=== PATIENT | male | born 1945 | race Caucasian/White ===

== ENCOUNTER 2018-08-30 13:38 | Inpatient (IN) | payer MEDICARE, MEDICAID ==
--- NOTE | 2018-08-30 14:02 | ED Physician Chart ---
ED Chief Complaint/HPI - Patient Information Date Seen:: 08/30/18 Time Seen:: 13:35 Chief Complaint:: Pt is here for medical clearance for Geropsych admission. History of Present Illness:: Pt has h/o dementia. Pt was brought in from nursing facility reportedly has been noticed to have been causing disturbance in nursing facility. Pt appears to be comfortable. Pt is hard of hearing and does not cooperate fully; thus, H & P are limited. Allergies:: Allergies Allergy/AdvReac Type Severity Reaction Status Date / Time No Known Allergies Allergy Verified 08/30/18 13:49 Vitals:: see Nurse Note. Historian:: Patient Family MD/PCP:: unknown LMP:: N/A Review:: Nurse's Note Reviewed ED Review of Systems - Review of Systems General/Constitutional: Other (Pt is uncooperative for ROS.) ED Past Medical History - Past Medical History Past Medical History: HTN, DM, Dyslipidemia, Dementia Family History: Other (Pt is uncooperative to provide info on FHx.) Social History: Other (Pt does not cooperate to provide info on SHx.) Surgical History: other (Pt does not cooperate to provide info on Surgical Hx.) Psychiatricy History: Dementia Medication: Reviewed Family Medical History - Family Member Mother History Unknown: Yes ED Physical Exam - Physical Examination General/Constitutional: Awake, Well-developed, well-nourished (male), Alert, No distress Other Gen/Cons comments:: Pt breathes comfortably and speaks clearly. Pt is not fully cooperative. Head: Atraumatic Eyes: Lids, conjuctiva normal, PERRL, EOMI Skin: Well hydrated, No lymphadenopathy ENMT: External ears, nose nl, Nasal exam nl, Oropharynx nl Neck: Nontender, Full ROM w/o pain, No mass Respiratory: Nl effort/Exclusion, Clear to Auscultation, No Wheeze/Rhonchi/Rales Cardio Vascular: RRR, No murmur, gallop, rubs GI: No tenderness/rebounding/guarding, No organomegaly, Normal BS's, Nondistended, No mass/bruits Other GI comments:: Abdomen is soft. Extremities: No tenderness or effusion, Full ROM, normal strength in all extremities, No edema Neuro/Psych: Alert/oriented (knows his name. Spontaneous movements noticed in all 4 extremities. Pt does not cooperate for full neurological exam.) Misc: Normal back, No paraspinal tenderness ED Labs/Radiology/EKG Results - Lab Results Results: Laboratory Results - last 24 hr 08/30/18 08/30/18 08/30/18 14:40 14:40 14:40 WBC 8.0 RBC 4.20 Hgb 12.6 Hct 37.7 L MCV 89.7 MCH 30.0 MCHC Differential 33.5 RDW 13.3 Plt Count 234 MPV 10.0 Neutrophils % 63.3 Lymphocytes % 19.5 L Monocytes % 11.9 H Eosinophils % 4.8 Basophils % 0.5 PT 9.9 INR 0.95 PTT (Actin FS) 27.1 Sodium 140 Potassium 3.8 Chloride 102 Carbon Dioxide 29.4 Anion Gap 12.4 BUN 19 Creatinine 0.8 Est GFR ( Amer) TNP Est GFR (Non-Af Amer) TNP BUN/Creatinine Ratio 23.8 Glucose 172 H Calcium 9.9 Total Bilirubin 0.3 AST 74 H ALT 80 H Alkaline Phosphatase 106 H Troponin I Total Protein 7.3 Albumin 3.9 L Globulin 3.4 Albumin/Globulin Ratio 1.2 08/30/18 14:40 WBC RBC Hgb Hct MCV MCH MCHC Differential RDW Plt Count MPV Neutrophils % Lymphocytes % Monocytes % Eosinophils % Basophils % PT INR PTT (Actin FS) Sodium Potassium Chloride Carbon Dioxide Anion Gap BUN Creatinine Est GFR ( Amer) Est GFR (Non-Af Amer) BUN/Creatinine Ratio Glucose Calcium Total Bilirubin AST ALT Alkaline Phosphatase Troponin I 0.02 Total Protein Albumin Globulin Albumin/Globulin Ratio Pending lab results to be followed by admitting attending physician: urinalysis. - EKG Interpretations EKG Time:: 14:35 Rate & Rhythm: NSR with VR 78 Comments:: RBBB NSSTT changes. ED Septic Shock - . Is Septic Shock (SBP<90, OR Lactate>4 mmol\L) present?: No ED Reassessment (Disposition) - Reassessment Reassessment:: 1528 Pt remains stable and comfortable. Available lab results have been reviewed. Pt is medically cleared to be admitted to Geropsych Unit. Reassessment Condition:: Improved - Diagnosis Diagnosis:: Dementia with agitation by hx. Diabetes mellitus. Dyslipidemia. HTN. Asymptomatic mildly elevated AST/ALT and alkaline phosphatase of unknown significance. - Patient Disposition Admitted to:: [facility] Admitting Medical Physician:: Percy Benitez Admitting Psych Physician:: Bruce Cohn Time:: 15:40 Condition at Disposition:: Stable
[2018-08-30 14:47] LABS: EOSINOPHILE ABSOLUTE 0.4 Th/cmm (0.1-0.4); HEMOGLOBIN 12.6 gm/dL (12-16)
[2018-08-30 14:52] LABS: % BASOPHILS 0.5 % (0.0-2.0); % EOSINOPHILS 4.8 % (0.0-5.0); % LYMPHOCYTES 19.5 % (20.0-50.0); % MONOCYTES 11.9 % (2.0-10.0); % NEUTROPHILS 63.3 % (40.0-80.0); HEMATOCRIT 37.7 % (41.0-60); LYMPHOCYTE ABSOLUTE 1.6 Th/cmm (1.5-3.0); MEAN CELL VOLUME 89.7 fl (80-99); MEAN CORPUSCULAR HGB CONC 33.5 pg (28.0-36.0); PLATELET COUNT 234 Th/cmm (150-400); RED CELL DISTRIBUTION WIDTH 13.3 % (11.5-20.0)
[2018-08-30 15:00] LABS: INR 0.95 (0.5-1.4)
[2018-08-30 15:01] LABS: ALB/GLOB RATIO 1.2 (1.0-1.8); ALBUMIN 3.9 gm/dL (4.2-5.5); ALKALINE PHOSPHATASE 106 U/L (34-104); ANION GAP 12.4 (7.0-16.0); BILIRUBIN,TOTAL 0.3 mg/dL (0.3-1.0); BUN - UREA NITROGEN 19 mg/dL (7-25); CALCIUM SERUM 9.9 mg/dL (8.6-10.3); CARBON DIOXIDE 29.4 mEq/L (21.0-31.0); CHLORIDE 102 mEq/L (98-107); CREATININE - SERUM 0.8 mg/dL (0.7-1.3); GLUCOSE 172 mg/dL (70-105); POTASSIUM SERUM 3.8 mEq/L (3.5-5.1); SGOT 74 U/L (13-39); SGPT/ALT 80 U/L (7-52); SODIUM SERUM 140 mEq/L (136-145); TOTAL PROTEIN,SERUM 7.3 gm/dL (6.0-8.3)
[2018-08-30 18:20] LABS: CHOLESTEROL 106 mg/dL (<200); HDL -HIGH DENSITY LIPOPROTEIN 45 mg/dL (23-92); TRIGLYCERIDES 55 mg/dL (<150)
[2018-08-30] MEDS ORDERED: Pneumococcal Vaccine 0.5 mL Vial IM ONE (18:20)
--- NOTE | 2018-08-30 23:17 | History & Physical ---
ADMIT DATE: 08/30/2018 ADMITTING PHYSICIAN: Dr. Cohn. REASON FOR ADMISSION: Psychiatric disorder. HISTORY OF PRESENT ILLNESS: This is a 73-year-old male with underlying history of diabetes, hypertension, hyperlipidemia, coronary artery disease and mental health disorders who was admitted to the [facility] by Dr. Cohn. Dr. Cohn requested medical H and P on this patient. The patient is hard of hearing on the left ear. He stated that he is doing okay. He seems confused and a poor historian. Most of the history is obtained through available medical records. PAST MEDICAL HISTORY: Diabetes, hypertension, hyperlipidemia, mental health disorders and chronic insomnia. PAST SURGICAL HISTORY: None reported. SOCIAL HISTORY: No reported alcohol, tobacco or drug use. CURRENT MEDICATIONS: Per medical reconciliation list. ALLERGIES: ____. REVIEW OF SYSTEMS: No reported fever, no chills, no diarrhea, vomiting, abdominal pain, no chest pain or trouble breathing. No headache, no visual disturbance reported. Left ear hearing loss reported. PHYSICAL EXAMINATION: VITAL SIGNS: Temperature 98.2, pulse 65, respirations 20, blood pressure 126/69, ____ on room air. HEENT: Unremarkable. HEART: S1 and S2 normal. LUNGS: Clear to auscultation. ABDOMEN: Soft, ____. NEUROLOGIC: The patient is awake, confused. EXTREMITIES: Bilateral lower extremity +2 edema. LABORATORY DATA: No lab data is available. ASSESSMENT: 1. Hypertension. 2. Hyperlipidemia. 3. Diabetes ____. 4. Coronary artery disease. 5. Congestive heart failure. 6. Mental health disorder. 7. Elevated liver enzymes. PLAN: The patient admitted to Geropsych Unit. Psych management per psychiatrist. We will discontinue the patient's statin due to elevated liver enzymes. Monitor liver enzymes. Continue Lasix and losartan. Continue hydralazine and continue metformin. Hemoglobin A1c will be ordered. PT, OT ordered. The patient's condition and plan of care discussed with the nursing staff. Thank you, Dr. Cohn, for allowing me to participate in the care of this patient. JOB# [id number]
[2018-08-31 05:44] VITALS: BP 128/65
[2018-08-31 08:08] LABS: A1C 6.2 % (4.8-5.6)
[2018-08-31] MEDS: Multivitamin Tab PO SCH (09:00)
[2018-08-31] MEDS: Potassium Chloride 10 mEq ER Tab PO SCH (09:00)
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
[2018-08-31 17:17] LABS: URINE SOURCE RANDOM
[2018-08-31 17:25] LABS: URINE BILIRUBIN NEGATIVE (NEGATIVE); URINE BLOOD NEGATIVE (NEGATIVE); URINE GLUCOSE (UA) NEGATIVE (NEGATIVE); URINE KETONE NEGATIVE (NEGATIVE); URINE LEUKOCYTE ESTERASE NEGATIVE (NEGATIVE); URINE NITRATE NEGATIVE (NEGATIVE); URINE PROTEIN NEGATIVE (NEGATIVE); URINE UROBILINOGEN 0.2 E.U./dL (0.2 - 1.0)
[2018-08-31 17:32] LABS: URINE CLARITY CLEAR (CLEAR); URINE COLOR YELLOW; URINE MICROSCOPIC INDICATED? YES
[2018-08-31 17:40] LABS: URINE RBC NONE SEEN /hpf (0-5); URINE WBC 0-2 /hpf (0-5)
[2018-08-31 17:41] LABS: URINE BACTERIA FEW /hpf (NONE SEEN); URINE EPITHELIAL CELLS FEW /lpf (FEW)
--- NOTE | 2018-08-31 20:56 | General Progress Note ---
Subjective - Review of Systems Service Date: 08/31/18 Subjective: Patient seen and examined confused no new concern reported Objective - Results Result Diagrams: 08/30/18 14:40 08/30/18 14:40 Recent Labs: Laboratory Last Values WBC 8.0 Th/cmm (4.8-10.8) 08/30/18 14:40 RBC 4.20 Mil/cmm (3.80-5.80) 08/30/18 14:40 Hgb 12.6 gm/dL (12-16) 08/30/18 14:40 Hct 37.7 % (41.0-60) L 08/30/18 14:40 MCV 89.7 fl (80-99) 08/30/18 14:40 MCH 30.0 pg (27.0-31.0) 08/30/18 14:40 MCHC Differential 33.5 pg (28.0-36.0) 08/30/18 14:40 RDW 13.3 % (11.5-20.0) 08/30/18 14:40 Plt Count 234 Th/cmm (150-400) 08/30/18 14:40 MPV 10.0 fl 08/30/18 14:40 Neutrophils % 63.3 % (40.0-80.0) 08/30/18 14:40 Lymphocytes % 19.5 % (20.0-50.0) L 08/30/18 14:40 Monocytes % 11.9 % (2.0-10.0) H 08/30/18 14:40 Eosinophils % 4.8 % (0.0-5.0) 08/30/18 14:40 Basophils % 0.5 % (0.0-2.0) 08/30/18 14:40 PT 9.9 SECONDS (9.5-11.5) 08/30/18 14:40 INR 0.95 (0.5-1.4) 08/30/18 14:40 PTT (Actin FS) 27.1 SECONDS (26.0-38.0) 08/30/18 14:40 Sodium 140 mEq/L (136-145) 08/30/18 14:40 Potassium 3.8 mEq/L (3.5-5.1) 08/30/18 14:40 Chloride 102 mEq/L (98-107) 08/30/18 14:40 Carbon Dioxide 29.4 mEq/L (21.0-31.0) 08/30/18 14:40 Anion Gap 12.4 (7.0-16.0) 08/30/18 14:40 BUN 19 mg/dL (7-25) 08/30/18 14:40 Creatinine 0.8 mg/dL (0.7-1.3) 08/30/18 14:40 Est GFR ( Amer) TNP 08/30/18 14:40 Est GFR (Non-Af Amer) TNP 08/30/18 14:40 BUN/Creatinine Ratio 23.8 08/30/18 14:40 Glucose 172 mg/dL (70-105) H 08/30/18 14:40 POC Glucose 137 MG/DL (70 - 105) H 08/31/18 16:29 Calcium 9.9 mg/dL (8.6-10.3) 08/30/18 14:40 Total Bilirubin 0.3 mg/dL (0.3-1.0) 08/30/18 14:40 AST 74 U/L (13-39) H 08/30/18 14:40 ALT 80 U/L (7-52) H 08/30/18 14:40 Alkaline Phosphatase 106 U/L (34-104) H 08/30/18 14:40 Troponin I 0.02 ng/mL (0.01-0.05) 08/30/18 14:40 Total Protein 7.3 gm/dL (6.0-8.3) 08/30/18 14:40 Albumin 3.9 gm/dL (4.2-5.5) L 08/30/18 14:40 Globulin 3.4 gm/dL 08/30/18 14:40 Albumin/Globulin Ratio 1.2 (1.0-1.8) 08/30/18 14:40 Triglycerides 55 mg/dL (<150) 08/30/18 14:40 Cholesterol 106 mg/dL (<200) 08/30/18 14:40 LDL Cholesterol Direct 46 mg/dL (75-193) L 08/30/18 14:40 HDL Cholesterol 45 mg/dL (23-92) 08/30/18 14:40 Urine Source RANDOM 08/31/18 17:00 Urine Color YELLOW 08/31/18 17:00 Urine Clarity CLEAR (CLEAR) 08/31/18 17:00 Urine pH 6.0 (4.6 - 8.0) 08/31/18 17:00 Ur Specific [place] 1.010 (1.005-1.030) 08/31/18 17:00 Urine Protein NEGATIVE mg/dL (NEGATIVE) 08/31/18 17:00 Urine Glucose (UA) NEGATIVE mg/dL (NEGATIVE) 08/31/18 17:00 Urine Ketones NEGATIVE mg/dL (NEGATIVE) 08/31/18 17:00 Urine Blood NEGATIVE (NEGATIVE) 08/31/18 17:00 Urine Nitrate NEGATIVE (NEGATIVE) 08/31/18 17:00 Urine Bilirubin NEGATIVE (NEGATIVE) 08/31/18 17:00 Urine Urobilinogen 0.2 E.U./dL (0.2 - 1.0) 08/31/18 17:00 Ur Leukocyte Esterase NEGATIVE (NEGATIVE) 08/31/18 17:00 Urine RBC NONE SEEN /hpf (0-5) 08/31/18 17:00 Urine WBC 0-2 /hpf (0-5) 08/31/18 17:00 Ur Epithelial Cells FEW /lpf (FEW) 08/31/18 17:00 Urine Bacteria FEW /hpf (NONE SEEN) 08/31/18 17:00 - Physical Exam Vitals and I&O: Vital Signs Temp 97.2 F 08/31/18 20:47 Pulse 67 08/31/18 20:47 Resp 20 08/31/18 20:47 BP 132/65 08/31/18 20:47 Pulse Ox 96 08/31/18 20:47 Intake & Output 08/31/18 08/31/18 09/01/18 06:59 18:59 06:59 Intake Total 1200 120 Balance 1200 120 Intake: Oral 1200 120 Other: # Voids 3 3 # Bowel Movements 1 0 Stool Characteristics Formed Formed Active Medications: Current Medications Acetaminophen (Tylenol) 650 mg PO Q4H PRN PRN Reason: Pain or Fever >101 Stop: 10/29/18 20:13 Last Admin: 08/30/18 21:13 Dose: 650 mg Clopidogrel Bisulfate (Plavix) 75 mg PO DAILY [facility] Stop: 10/30/18 08:59 Last Admin: 08/31/18 09:00 Dose: 75 mg Furosemide (Lasix) 20 mg PO DAILY [facility] Stop: 10/30/18 08:59 Last Admin: 08/31/18 09:00 Dose: 20 mg Hydralazine HCl (Apresoline) 25 mg PO BID ED Stop: 10/30/18 08:59 Last Admin: 08/31/18 17:11 Dose: 25 mg Lorazepam (Ativan) 0.5 mg PO Q4HR PRN; Protocol PRN Reason: Agitation Stop: 10/29/18 20:08 Last Admin: 08/31/18 20:50 Dose: 0.5 mg Losartan Potassium (Cozaar) 25 mg PO DAILY ED Stop: 10/30/18 08:59 Last Admin: 08/31/18 09:00 Dose: 25 mg Metformin HCl (Glucophage) 500 mg PO BID [facility] Stop: 10/30/18 08:59 Last Admin: 08/31/18 17:11 Dose: 500 mg Multivitamins/Vitamin C (Theragran) 1 tab PO DAILY ED Stop: 10/30/18 08:59 Last Admin: 08/31/18 09:00 Dose: 1 tab Nystatin (Nystop) 100 units TP BID [facility] Stop: 10/31/18 08:59 Potassium Chloride (Klor-Con) 10 meq PO DAILY [facility] Stop: 10/30/18 08:59 Last Admin: 08/31/18 09:00 Dose: 10 meq Quetiapine Fumarate (Seroquel) 50 mg PO DAILY [facility]; Protocol Stop: 10/30/18 08:59 Last Admin: 08/31/18 09:00 Dose: 50 mg Zolpidem Tartrate (Ambien) 5 mg PO HS PRN PRN Reason: Insomnia Stop: 10/29/18 20:12 Cardiovascular: Regular rate Lungs: Clear to auscultation Assessment/Plan - Problem List Patient Problems: All Active Problems DEMENTIA AND BEHAVIORAL DISTURBANCE (Acute) - Assessment Assessment: DM II HTN HYPERLIPIDEMIA ELEVATED LIVER ENZYMES DEMENTIA PSYCH DISORDER
[2018-09-01] MEDS: NYSTATIN 100000 UNITS/GM POWD TP SCH ×2 (09:36→17:41)
[2018-09-01] MEDS: Potassium Chloride 10 mEq ER Tab PO SCH (09:36)
[2018-09-01] MEDS: Multivitamin Tab PO SCH (09:38)
--- NOTE | 2018-09-01 22:26 | Progress Notes ---
DATE: 09/01/2018 SUBJECTIVE: Chart was reviewed and the patient interviewed. Also discussed the patient's condition with the staff and reviewed records and labs. The patient is still having racing thoughts and is still rambling with mood swings. The patient also still has slurred speech and disorganized thoughts with racing of thoughts. The patient also still has difficulty following directions because of his confusion. Otherwise, the patient continued to comply with taking his medications, with no side effects of medications. ASSESSMENT: The patient is still confused and agitated and restless. TREATMENT PLAN: Continue to monitor his behavior and his condition closely. Also, continue adjusting psychotropic medications and work on behavioral modification. [facility]# [id number]
[2018-09-02] MEDS: Multivitamin Tab PO SCH (09:53)
[2018-09-02] MEDS: NYSTATIN 100000 UNITS/GM POWD TP SCH ×2 (09:59→16:50)
[2018-09-02] MEDS: Potassium Chloride 10 mEq ER Tab PO SCH (09:59)
--- NOTE | 2018-09-02 22:33 | General Progress Note ---
Subjective - Review of Systems Service Date: 09/02/18 Subjective: Patient seen and examined confused no new concern reported Objective - Results Result Diagrams: 08/30/18 14:40 08/30/18 14:40 Recent Labs: Laboratory Last Values WBC 8.0 Th/cmm (4.8-10.8) 08/30/18 14:40 RBC 4.20 Mil/cmm (3.80-5.80) 08/30/18 14:40 Hgb 12.6 gm/dL (12-16) 08/30/18 14:40 Hct 37.7 % (41.0-60) L 08/30/18 14:40 MCV 89.7 fl (80-99) 08/30/18 14:40 MCH 30.0 pg (27.0-31.0) 08/30/18 14:40 MCHC Differential 33.5 pg (28.0-36.0) 08/30/18 14:40 RDW 13.3 % (11.5-20.0) 08/30/18 14:40 Plt Count 234 Th/cmm (150-400) 08/30/18 14:40 MPV 10.0 fl 08/30/18 14:40 Neutrophils % 63.3 % (40.0-80.0) 08/30/18 14:40 Lymphocytes % 19.5 % (20.0-50.0) L 08/30/18 14:40 Monocytes % 11.9 % (2.0-10.0) H 08/30/18 14:40 Eosinophils % 4.8 % (0.0-5.0) 08/30/18 14:40 Basophils % 0.5 % (0.0-2.0) 08/30/18 14:40 PT 9.9 SECONDS (9.5-11.5) 08/30/18 14:40 INR 0.95 (0.5-1.4) 08/30/18 14:40 PTT (Actin FS) 27.1 SECONDS (26.0-38.0) 08/30/18 14:40 Sodium 140 mEq/L (136-145) 08/30/18 14:40 Potassium 3.8 mEq/L (3.5-5.1) 08/30/18 14:40 Chloride 102 mEq/L (98-107) 08/30/18 14:40 Carbon Dioxide 29.4 mEq/L (21.0-31.0) 08/30/18 14:40 Anion Gap 12.4 (7.0-16.0) 08/30/18 14:40 BUN 19 mg/dL (7-25) 08/30/18 14:40 Creatinine 0.8 mg/dL (0.7-1.3) 08/30/18 14:40 Est GFR ( Amer) TNP 08/30/18 14:40 Est GFR (Non-Af Amer) TNP 08/30/18 14:40 BUN/Creatinine Ratio 23.8 08/30/18 14:40 Glucose 172 mg/dL (70-105) H 08/30/18 14:40 POC Glucose 137 MG/DL (70 - 105) H 08/31/18 16:29 Calcium 9.9 mg/dL (8.6-10.3) 08/30/18 14:40 Total Bilirubin 0.3 mg/dL (0.3-1.0) 08/30/18 14:40 AST 74 U/L (13-39) H 08/30/18 14:40 ALT 80 U/L (7-52) H 08/30/18 14:40 Alkaline Phosphatase 106 U/L (34-104) H 08/30/18 14:40 Troponin I 0.02 ng/mL (0.01-0.05) 08/30/18 14:40 Total Protein 7.3 gm/dL (6.0-8.3) 08/30/18 14:40 Albumin 3.9 gm/dL (4.2-5.5) L 08/30/18 14:40 Globulin 3.4 gm/dL 08/30/18 14:40 Albumin/Globulin Ratio 1.2 (1.0-1.8) 08/30/18 14:40 Triglycerides 55 mg/dL (<150) 08/30/18 14:40 Cholesterol 106 mg/dL (<200) 08/30/18 14:40 LDL Cholesterol Direct 46 mg/dL (75-193) L 08/30/18 14:40 HDL Cholesterol 45 mg/dL (23-92) 08/30/18 14:40 Urine Source RANDOM 08/31/18 17:00 Urine Color YELLOW 08/31/18 17:00 Urine Clarity CLEAR (CLEAR) 08/31/18 17:00 Urine pH 6.0 (4.6 - 8.0) 08/31/18 17:00 Ur Specific [place] 1.010 (1.005-1.030) 08/31/18 17:00 Urine Protein NEGATIVE mg/dL (NEGATIVE) 08/31/18 17:00 Urine Glucose (UA) NEGATIVE mg/dL (NEGATIVE) 08/31/18 17:00 Urine Ketones NEGATIVE mg/dL (NEGATIVE) 08/31/18 17:00 Urine Blood NEGATIVE (NEGATIVE) 08/31/18 17:00 Urine Nitrate NEGATIVE (NEGATIVE) 08/31/18 17:00 Urine Bilirubin NEGATIVE (NEGATIVE) 08/31/18 17:00 Urine Urobilinogen 0.2 E.U./dL (0.2 - 1.0) 08/31/18 17:00 Ur Leukocyte Esterase NEGATIVE (NEGATIVE) 08/31/18 17:00 Urine RBC NONE SEEN /hpf (0-5) 08/31/18 17:00 Urine WBC 0-2 /hpf (0-5) 08/31/18 17:00 Ur Epithelial Cells FEW /lpf (FEW) 08/31/18 17:00 Urine Bacteria FEW /hpf (NONE SEEN) 08/31/18 17:00 - Physical Exam Vitals and I&O: Vital Signs Temp 98.0 F 09/02/18 22:20 Pulse 77 09/02/18 22:20 Resp 20 09/02/18 22:20 BP 118/70 09/02/18 22:20 Pulse Ox 100 09/02/18 22:20 Intake & Output 09/02/18 09/02/18 09/03/18 06:59 18:59 06:59 Intake Total 120 460 Balance 120 460 Intake: Oral 120 460 Other: # Voids 3 2 # Bowel Movements 1 1 Active Medications: Current Medications Acetaminophen (Tylenol) 650 mg PO Q4H PRN PRN Reason: Pain or Fever >101 Stop: 10/29/18 20:13 Last Admin: 08/30/18 21:13 Dose: 650 mg Clopidogrel Bisulfate (Plavix) 75 mg PO DAILY [facility] Stop: 10/30/18 08:59 Last Admin: 09/02/18 09:52 Dose: Not Given Furosemide (Lasix) 20 mg PO DAILY [facility] Stop: 10/30/18 08:59 Last Admin: 09/02/18 09:55 Dose: Not Given Hydralazine HCl (Apresoline) 25 mg PO BID ED Stop: 10/30/18 08:59 Last Admin: 09/02/18 16:49 Dose: 25 mg Lorazepam (Ativan) 0.5 mg PO Q4HR PRN; Protocol PRN Reason: Agitation Stop: 10/29/18 20:08 Losartan Potassium (Cozaar) 25 mg PO DAILY ED Stop: 10/30/18 08:59 Last Admin: 09/02/18 09:57 Dose: Not Given Metformin HCl (Glucophage) 500 mg PO BID ED Stop: 10/30/18 08:59 Last Admin: 09/02/18 16:49 Dose: 500 mg Multivitamins/Vitamin C (Theragran) 1 tab PO DAILY ED Stop: 10/30/18 08:59 Last Admin: 09/02/18 09:53 Dose: Not Given Nystatin (Nystop) 100 units TP BID ED Stop: 10/31/18 08:59 Last Admin: 09/02/18 16:50 Dose: 100 units Potassium Chloride (Klor-Con) 10 meq PO DAILY ED Stop: 10/30/18 08:59 Last Admin: 09/02/18 09:59 Dose: Not Given Quetiapine Fumarate (Seroquel) 25 mg PO BID ED; Protocol Stop: 10/31/18 08:59 Last Admin: 09/02/18 16:50 Dose: 25 mg Quetiapine Fumarate (Seroquel) 50 mg PO HS ED; Protocol Stop: 10/31/18 20:59 Last Admin: 09/02/18 21:34 Dose: 50 mg Zolpidem Tartrate (Ambien) 5 mg PO HS PRN PRN Reason: Insomnia Stop: 10/29/18 20:12 Last Admin: 09/01/18 21:28 Dose: 5 mg Cardiovascular: Regular rate Lungs: Clear to auscultation Assessment/Plan - Problem List Patient Problems: All Active Problems DEMENTIA AND BEHAVIORAL DISTURBANCE (Acute) - Assessment Assessment: DM II HTN HYPERLIPIDEMIA ELEVATED LIVER ENZYMES DEMENTIA PSYCH DISORDER - Plan Plan: Continue current treatment Psych follow up Monitor vitals Fall precaution PT OT Aspiration precaution
[2018-09-03] MEDS: Potassium Chloride 10 mEq ER Tab PO SCH (08:42)
[2018-09-03] MEDS: Multivitamin Tab PO SCH (08:45)
[2018-09-03] MEDS: NYSTATIN 100000 UNITS/GM POWD TP SCH ×2 (08:48→16:14)
[2018-09-04] MEDS: Potassium Chloride 10 mEq ER Tab PO SCH (08:17)
[2018-09-04] MEDS: Multivitamin Tab PO SCH (08:19)
[2018-09-04] MEDS: NYSTATIN 100000 UNITS/GM POWD TP SCH ×2 (09:43→17:35)
--- NOTE | 2018-09-04 16:43 | Progress Notes ---
DATE: 09/02/2018 SUBJECTIVE: Chart was reviewed and the patient interviewed. Also discussed the patient's condition with the staff and reviewed records and labs. The patient is easily agitated. The patient also is restless. He also is paranoid and suspicious and he still has disorganized thoughts. Also, he gets angry easily. He still needs close monitoring. ASSESSMENT: The patient is still psychotic and agitated. TREATMENT PLAN: Continue to monitor his behavior and condition closely. Also, continue to work on compliance with medications and behavior on medication. [facility]# [id number]
--- NOTE | 2018-09-04 16:43 | Progress Notes ---
DATE: SUBJECTIVE: Chart was reviewed and the patient was interviewed. Also discussed the patient's condition with the staff and reviewed the records and labs. The patient is confused. He is talking to himself. The patient also is still agitated and still ____ interaction with others and there is minimum ____. The patient is still having episodes of agitation and irritability and still needs close monitoring. Otherwise, the patient continued to comply with taking his medications with no side effects. ASSESSMENT: The patient is still agitated and still needs close monitoring. TREATMENT PLAN: Continue to work on ____. Also, continue adjusting psychotropic medications and further plan being continue Seroquel 25 mg twice a day and 50 mg at bedtime and we will continue to follow up. JOB# [id number]
--- NOTE | 2018-09-04 21:25 | Progress Notes ---
DATE: 09/04/2018 SUBJECTIVE: The patient in the hospital, unruly, confused, not really quite sure where he is or what is going on. On [id number], I tried to arouse the patient. He is arousable, opens his eyes, but then closes them, does not want to engage. I did see him a few days prior, still with racing thoughts, some mood swings still with episodes of yelling, screaming still and unruly at times, hard to redirect. Fair sleep, fair appetite. Medications were noted. ASSESSMENT: The patient remains confused, ongoing behavioral disturbances. Continue dosing of Seroquel. The patient is not currently safe for a lower level of care. Per [facility]' notes, the patient is conserved. There are efforts to try to get him into subacute. We will continue to monitor while we stabilize further. JOB# [id number]
[2018-09-05] MEDS: Potassium Chloride 10 mEq ER Tab PO SCH (09:23)
[2018-09-05] MEDS: Multivitamin Tab PO SCH (09:23)
[2018-09-05] MEDS: NYSTATIN 100000 UNITS/GM POWD TP SCH ×2 (09:24→17:01)
--- NOTE | 2018-09-05 19:32 | Progress Notes ---
DATE: 09/05/2018 SUBJECTIVE: The patient slept for about 5 hours, try to arouse him. He is arousable, but does not want to talk to me. Staff noting that he is hyperverbal, gets agitated and is still confused, unruly at times, rambling, believing that someone is trying to hurt him, yelling for the police, paranoid of the staff, believing that staff is out to get him, needing a higher level of prompting, nursing care. Medications were noted. Vitals also were noted. PLAN: We will continue to monitor, titrate and adjust medications. JOB# [id number]
[2018-09-06] MEDS: NYSTATIN 100000 UNITS/GM POWD TP SCH ×2 (09:55→18:00)
[2018-09-06] MEDS: Multivitamin Tab PO SCH (09:56)
[2018-09-06] MEDS: Potassium Chloride 10 mEq ER Tab PO SCH (10:00)
--- NOTE | 2018-09-06 18:34 | Progress Notes ---
DATE: 09/06/2018 SUBJECTIVE: The patient in the hospital, very poorly oriented, refusing to speak with me. Noted to be disorganized, unpredictable, paranoid of staff, difficult to interview at this time because he simply will not talk to me, sleeping, arousable, but does not say anything. Staff noting he is confused, still believing that someone is trying to hurt him, still asking for the police. ASSESSMENT: The patient remains symptomatic, ongoing psychotic symptoms and irritabilities. PLAN: We will continue to monitor. No medication side effects noted, titrate and adjust medications. JOB# [id number]
[2018-09-07] MEDS: NYSTATIN 100000 UNITS/GM POWD TP SCH ×2 (08:41→17:42)
[2018-09-07] MEDS: Multivitamin Tab PO SCH (08:42)
[2018-09-07] MEDS: Potassium Chloride 10 mEq ER Tab PO SCH (08:50)
--- NOTE | 2018-09-07 19:37 | Progress Notes ---
DATE: 09/07/2018 SUBJECTIVE: The patient is currently in the hospital, unruly, paranoid, hiding other patients from peripheral staff, not taking medications, agitation, trying to find a way to the unit, very confused, disoriented, highly impulsive, unpredictable. ASSESSMENT: The patient is unruly, ongoing agitation. Staff having a hard time controlling his behaviors, also concerned about medication compliance. PLAN: We will continue to monitor. I will be increasing dosages of Seroquel. There was also a concern about medication compliance. Staff noting that sometimes he does not take his medications. We will titrate dosing medications to try to better control behaviors. JOB# [id number]
[2018-09-08] MEDS: Multivitamin Tab PO SCH (08:26)
[2018-09-08] MEDS: Potassium Chloride 10 mEq ER Tab PO SCH (08:26)
[2018-09-08] MEDS: NYSTATIN 100000 UNITS/GM POWD TP SCH ×2 (08:34→16:41)
--- NOTE | 2018-09-08 21:31 | Progress Notes ---
DATE: SUBJECTIVE: Chart was reviewed and the patient interviewed. Also discussed the patient's condition with the staff and reviewed records and labs. The patient is still in angry and in irritable mood. The patient also is still easily agitated and he is still verbally abusive to staff and is suspicious and is paranoid. The patient also is having minimum interaction with others and wants to be left alone. Also, still having severe mood swings. Otherwise, the patient is compliant with taking his medications, with no side effects of medications. ASSESSMENT: The patient is still agitated and is still abusive and aggressive with the staff. TREATMENT PLAN: We will monitor his behavior and his condition closely. Also, we will increase Seroquel to 37.5 mg twice a day and 100 mg at bedtime and we will continue to follow up his behavior and his condition closely. JOB# [id number]
[2018-09-09] MEDS: Multivitamin Tab PO SCH (08:30)
[2018-09-09] MEDS: Potassium Chloride 10 mEq ER Tab PO SCH (08:30)
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
== END 2018-09-09 15:00 | DRG 885 ==
LOC: ER 13:38 → GERO 16:00
PROVIDERS: ADMIT Psychiatry & Neurology Psychiatry; ATTEND Psychiatry & Neurology Psychiatry
DX: F29 Unspecified psychosis not due to a substance or known physiological condition (principal); I11.0 Hypertensive heart disease with heart failure; F39 Unspecified mood [affective] disorder; F41.9 Anxiety disorder, unspecified; E78.5 Hyperlipidemia, unspecified; E11.9 Type 2 diabetes mellitus without complications; I25.10 Atherosclerotic heart disease of native coronary artery without angina pectoris; F03.90 Unspecified dementia, unspecified severity, without behavioral disturbance, psychotic disturbance, mood disturbance, and anxiety; G47.00 Insomnia, unspecified; I50.9 Heart failure, unspecified
CPT/HCPCS: 36415-UA; 80053-TC; 80061-TC; 81001-TC; 82948-90; 83036-90; 84484-TC; 85025-TC; 85610-TC; 90732; 93005; 97530; X3904; Z7610